=== PATIENT | male | born 1970 | race Two or more races ===

== ENCOUNTER 2020-08-13 18:51 | Emergency (ER) | payer MEDICAID ==
[~2020-08-13] VITALS: Ht 170.2 cm; Wt 100.7 kg
[2020-08-13] MEDS ORDERED: PROPARACAINE OPHTH 0.5%, 15ML EACHEYE ONE (19:30)
[2020-08-13] MEDS ORDERED: FLUORESCEIN OPHTHALMIC 1 MG STRIP EACHEYE ONE (19:30)
--- NOTE | 2020-08-13 22:09 | NUR ---
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 TO ROOM FROM LOBBY AT THIS TIME.
[2020-08-13] MEDS ORDERED: FLUORESCEIN OPHTHALMIC 1 MG STRIP ONE (22:15)
--- NOTE | 2020-08-13 22:15 | NUR ---
ASSESSMENT MADE. ERP AT BEDSIDE.
--- NOTE | 2020-08-13 22:36 | NUR ---
PATIENT DISCHARGED WITH PRESCRIPTION AND INSTRUCTION. VERBALIZED UNDERSTANDING.
[2020-08-13 22:37] VITALS: BP 142/83
== END 2020-08-13 22:39 | disposition home or self-care (01) ==
LOC: ED 22:30
DX: H10.021 Other mucopurulent conjunctivitis, right eye (principal)
CPT/HCPCS: 99283